=== PATIENT | male | born 1995 | race Caucasian/White ===

== ENCOUNTER 2019-01-19 02:26 | Emergency (ER) | payer MEDICAID ==
[~2019-01-19] VITALS: Ht 170.2 cm; Wt 122.0 kg
[2019-01-19] MEDS ORDERED: ACETAMINOPHEN 325MG TABLET PO STA (04:09)
[2019-01-19] MEDS ORDERED: SODIUM CHLORIDE 0.9% 1,000 ML IV ONE ×2 (04:09)
[2019-01-19] MEDS ORDERED: KETOROLAC 30MG/ML VIAL IV STA (04:09)
[2019-01-19] MEDS ORDERED: ONDANSETRON HCL 4MG/2ML INJ IV STA (04:09)
[2019-01-19 04:38] LABS: HEMATOCRIT. 51.9 % (42.0-52.0); HEMOGLOBIN. 17.9 g/dL (14.0-18.0); MEAN CORPUSCULAR HEMOGLOBIN 28.1 pg (28.0-32.0); MEAN CORPUSCULAR VOLUME 81.4 fL (80.0-94.0); MEAN PLATELET VOLUME 6.7 fl (7.4-10.4); PLATELET 371 x1000/uL (130-400); RED BLOOD CELL COUNT 6.39 mill/uL (4.7-6.1); RED CELL DISTRIBUTION WIDTH 14.2 % (11.6-14.6)
[2019-01-19 04:39] LABS: CLARITY URINE CLOUDY (CLEAR); COLOR URINE DARK YELLOW (YELLOW); KETONES URINE TRACE (NEGATIVE); LEUKOCYTE ESTERASE URINE NEGATIVE (NEGATIVE); NITRITE URINE NEGATIVE (NEGATIVE); OCCULT BLOOD URINE NEGATIVE (NEGATIVE); PROTEIN URINE 2+ (NEGATIVE); SPECIFIC GRAVITY URINE 1.042 (1.005-1.030)
[2019-01-19 04:46] LABS: CHLORIDE 105 mEq/L (98-107)
[2019-01-19 05:09] LABS: PLATELET ESTIMATE NORMAL
[2019-01-19 05:51] VITALS: BP 118/68
== END 2019-01-19 06:20 | disposition home or self-care (01) ==
LOC: ER 02:26
DX: E86.0 Dehydration (principal); K52.9 Noninfective gastroenteritis and colitis, unspecified
CPT/HCPCS: 36415; 71045; 80053; 81003; 83605; 83690; 84145; 85025; 87040; 87804; 96361; 96374; 96375; 99284; J1885; J2405; J7030; Z7610